=== PATIENT | male | born 1985 | race African-American/Black ===

== ENCOUNTER 2023-06-21 18:02 | Emergency (ER) | payer BC, SELFPAY ==
--- NOTE | ~2023-06-21 | XR_ITS ---
EXAMINATION: XR FOOT, RIGHT CLINICAL INFORMATION: pain over 2/3 MTP joints COMPARISON: None available. TECHNIQUE: AP, lateral, and oblique views of the right foot. FINDINGS: No fracture. No dislocation. Bone and joint are normal. No soft tissue abnormality. XR/XR foot RT 2V IMPRESSION: Normal right foot.
--- NOTE | 2023-06-21 18:29 | ED_ITS ---
HPI - General Adult General Chief complaint: Extremity Problem Stated complaint: foot inj, broken? Time Seen by Provider: 06/21/23 18:59 Source: patient Mode of arrival: ambulatory Limitations: no limitations History of Present Illness HPI narrative: Patient is a 38 year old assigned male at with no reported medical history presenting to the emergency department today with right foot pain. Patient states that over the last 2 days he has had worsening right foot pain. Patient denies any dizziness, lightheadedness, abdominal pain, nausea, vomiting, fever, chills, blurry vision, double vision, loss of vision, chest pain, difficulty breathing, shortness of breath, back pain, night sweats, pain with urination, increased urinary frequency, increased urinary urgency, blood in his urine or stool, syncope or a near syncopal episode, recent trauma or falls, bowel incontinence, bladder incontinence, bowel retention, bladder retention, or any other complaints at this time. Onset (ago): day(s) (2) Location: right and lower extremity Radiation: non-radiation Severity: mild Severity scale (1-10): 3 Quality: aching and dull Pain Consistency: constant Relieving factors: none Exacerbating factors: none Associated symptoms: denies other symptoms Treatments prior to arrival: none Related Data Previous Rx's Medication Instructions Recorded cephalexin 500 mg capsule 500 mg PO Q6H 7 days #28 caps 06/21/23 fluconazole 150 mg tablet 150 mg PO Q3D 2 doses #2 tabs 06/21/23 (Diflucan) Allergies Allergy/AdvReac Type Severity Reaction Status Date / Time No Known Allergies Allergy Verified 06/21/23 18:32 Review of Systems Constitutional: Constitutional: Reports no additional constitutional complaints, Denies chills, Denies fever(s) and Denies night sweats Eyes: Eyes: Reports no additional eye complaints, Denies blurry vision, Denies change in vision, Denies diplopia, Denies eye discharge, Denies loss of vision and Denies eye pain ENT: Denies dizziness Cardiovascular: Cardiovascular: Reports no additional cardiovascular complaints, Denies chest pain, Denies lightheadedness, Denies Loss of Consciousness and Denies dyspnea Respiratory: Respiratory: Reports no additional respiratory complaints and Denies dyspnea Gastrointestinal: Gastrointestinal: Reports no additional gastrointestinal com plaints, Denies abdominal pain, Denies melena, Denies hematochezia, Denies change in bowel habits and Denies change in stool character Genitourinary: Genitourinary: Reports no additional male genitourinary complaints, Denies hematuria, Denies oliguria, Denies difficulty urinating, Denies dysuria, Denies urinary frequency, Denies urinary hesitancy, Denies urinary incontinence and Denies urinary urgency Musculoskeletal: Musculoskeletal: Reports no additional musculoskeletal complaints, Denies numbness and Denies tingling Comments: right foot pain Neurologic: Denies dizziness, Denies loss of vision, Denies numbness and Denies tingling Psychiatric: Psychiatric: Reports no additional psychiatric complaints Endocrine: Endocrine: Reports no additional endocrine complaints Hematologic/Lymphatic: Hematologic/Lymphatic: Reports no additional cali tologic/lymphatic complaints Allergic/Immunologic: Allergic/Immunologic: Reports no additional allergic/immunologic complaints PMFSH Past Medical History Attestation statement: The following information was validated with the patient. Source: old records reviewed and nursing notes reviewed Social History Social History Advance Directives: No Advance Directives Information Provided: Yes Physical Exam ED Vital Signs: Vital Signs - 24 hr 06/21/23 18:30 Temperature 97.8 F Pulse Rate 70 Respiratory Rate 16 Blood Pressure 122/77 Pulse Oximetry 100 Oxygen Delivery Method Room Air BMI result Body Mass Index 27.7 Const General: cooperative, no acute distress, alert and awake Nutritional Appearance: well nourished Orientation/consciousness: patient oriented x3 Limitations: no limitations HENMT Head: Yes normal to inspection and Yes atraumatic Ears: hearing grossly normal bilaterally and external ears normal General nose exam: Normal external nose present, no nasal discharge noted and no epistaxis Face and sinus: Yes normal facial exam, No abrasion and No laceration Mouth: Normal oral and palatal mucosa present, no drooling and no muffled voice Eyes General: appearance normal, both eyes and all related structures Periorbital: periorbital findings normal Eyelids: Yes eyelids normal Conjunctivae: conjunctivae normal Pupils: Equal, round and reactive pupils present EOM: EOMs intact bilaterally Neck Neck: Yes normal visual inspection, Yes full ROM and Yes no lymphadenopathy Chest Chest palpation & inspection: normal inspection of the chest Resp Effort & Inspection: normal respiratory effort and able to speak in complete sentences GI Inspection: Yes normal to inspection Neuro General: patient oriented x3 and moves all extremities Cranial nerves: Yes Equal, round and reactive pupils present Cognition (Neuro): normal cognition Motor exam (neuro): 5/5 motor strength present throughout Sensory Exam: Normal double simultaneous stimulation for sensation Coordination: [id number] test normal Extrem Other: minimal erythema and warmth present to the dorsal aspect of the right foot with evidence of yeast between the toes General: Yes full ROM and Yes capillary refill normal Psych Appearance: grossly normal Mental Status: mental status grossly normal Affect: normal affect Attitude: cooperative Thought process: Normal thought process present Thought content: Normal thought content present Insight: Good insight present (Psych) Course Course Course Narrative: This is a rapid medical exam: Additional HPI, ROS, PE not included below will be deferred to primary provider. Patient is a 38-year-old male presenting to the emergency department with complaint of right foot pain for the past 2 days. Was at work when it began to hurt, pain has worsened since. Also reports numbness/tingling, throbbing pain. Denies fall or other injury. Tenderness and swelling to 2nd and 3rd MTP joints and toes of right foot, no erythema or warmth, 2+ DP pulse. Plan: xray Medical Decision Making Medical Decision Making [facility] Narrative: Patient is a 38 year old assigned male at with no reported medical history presenting to the emergency department today with right foot pain. Patient's physical exam was as noted in the physical exam portion of this chart. Patient's right foot x-ray showed no acute process. I explained my physical exam findings as well as all test results to the patient. I answered all questions asked by the patient. I stressed the importance of the patient taking his medication as prescribed. I stressed the importance of the patient following up with his primary care provider. I stressed the importance of the patient returning to the emergency department immediately if his symptoms were to worsen or if he were to develop any dizziness, shortness of breath, difficulty breathing, chest pain, blurry vision, loss of vision, nausea, vomiting, abdominal pain, fever, chills, back pain, or any other complaints. Patient verbalized agreement and understanding with this treatment plan and discharge. Differential Diagnosis Differential Diagnoses: The differential diagnosis associated with the presentation includes Cellulitis Athletes foot Independent Interpretation I performed an independent interpretation of an: Plain X-Ray Interpretation: My interpretation is in agreement with the radiologist's impression of this imaging study. EXAMINATION: XR FOOT, RIGHT CLINICAL INFORMATION: pain over 2/3 MTP joints? COMPARISON: None available.? TECHNIQUE: AP, lateral, and oblique views of the right foot. FINDINGS: No fracture. No dislocation. Bone and joint are normal. No soft tissue abnormality.? XR/XR foot RT 2V IMPRESSION: Normal right foot. Dictated By: Joe Tirado MD Signed By: Electronically signed by Joe Tirado MD 06/21/232021 Radiology Impression Discussion of test interpretation with radiology: I have reviewed the radiologi 's reading. Discharge Plan Discharge Clinical Impression: Cellulitis, Yeast infection Patient Disposition: Home, Self-Care Instructions: Cellulitis (DC), Skin Yeast Infection (ED) Additional Instructions: Follow up with your primary care provider. Return to the emergency department immediately if your symptoms worsen or if you develop any dizziness, shortness of breath, difficulty breathing, chest pain, blurry vision, loss of vision, nausea, vomiting, abdominal pain, fever, chills, back pain, or any other complaints. Prescriptions: New fluconazole [Diflucan] 150 mg tablet 150 mg PO Q3D Qty: 2 0RF cephalexin 500 mg capsule 500 mg PO Q6H 7 Days Qty: 28 0RF Referrals: [facility] [Provider Group] (Call to establish and follow up with a primary care provider. If you already have a primary care provider, please follow up with them.) [facility] [Provider Group] (Call to establish and follow up with a primary care provider. If you already have a primary care provider, please follow up with them.) [facility] [Provider Group] (Call to establish and follow up with a primary care provider. If you already have a primary care provider, please follow up with them.) Interventions: ED Discharge Assessment Last Done: 06/21/23 19:33 Discharge Date/Time: 06/21/23 19:55 Print Language: Iranian
[2023-06-21 18:30] VITALS: BP 122/77; PULSE 70; RESP 16; TEMP 36.6; O2SAT 100; BMI 27.7
== END 2023-06-21 19:55 | disposition home or self-care (01) ==
PROVIDERS: Emergency Provider Emergency Medicine
DX: B37.9 Candidiasis, unspecified (principal); L03.115 Cellulitis of right lower limb; M79.671 Pain in right foot
CPT/HCPCS: 73620; 99282; 99283

== ENCOUNTER 2023-06-24 16:18 | Emergency (ER) | payer BC, SELFPAY ==
[2023-06-24 16:43] VITALS: BP 106/77; PULSE 60; RESP 18; TEMP 36.4; O2SAT 99; BMI 28.4
--- NOTE | 2023-06-24 16:44 | ED_ITS ---
HPI - General Adult General Chief complaint: General Medical Stated complaint: right foot infection seen here 06/21 Time Seen by Provider: 06/24/23 20:56 Source: patient, RN notes reviewed and old records reviewed Mode of arrival: ambulatory Limitations: no limitations History of Present Illness HPI narrative: 38-year-old male presents for evaluation of infection to his right foot. Patient denies any medical history, he is not on any immunotherapy Patient was seen here a few days ago and was diagnosed with an infection to his right foot. He was prescribed Diflucan and cephalexin and discharged home He reports his symptoms have worsened since then. 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 Related Data Previous Rx's Medication Instructions Recorded cephalexin 500 mg capsule 500 mg PO Q6H 7 days #28 caps 06/21/23 fluconazole 150 mg tablet 150 mg PO Q3D 2 doses #2 tabs 06/21/23 (Diflucan) clotrimazole-betamethasone 1 1 appl topical BID 2 weeks #45 06/24/23 %-0.05 % topical cream grams Allergies Allergy/AdvReac Type Severity Reaction Status Date / Time No Known Allergies Allergy Verified 06/21/23 18:32 Review of Systems Constitutional: Constitutional: Denies chills and Denies fever(s) Musculoskeletal: Musculoskeletal: Reports arthralgias and Reports joint swelling Integumentary/Breasts: Comments: Rash to right foot PMFSH Social History Social History Advance Directives: No Advance Directives Information Provided: Yes Physical Exam ED Vital Signs: Vital Signs - 24 hr 06/24/23 16:43 Temperature 97.5 F Pulse Rate 60 Respiratory Rate 18 Blood Pressure 106/77 Pulse Oximetry 99 Oxygen Delivery Method Room Air BMI result Body Mass Index 28.4 Const General: healthy appearing, comfortable, no acute distress, alert and awake Nutritional Appearance: well nourished Orientation/consciousness: patient oriented x3 Eyes Eyelids: Yes eyelids normal Conjunctivae: conjunctivae normal Sclerae: sclerae normal Corneas: corneas normal Pupils: Equal, round and reactive pupils present EOM: EOMs intact bilaterally Neck Neck: Yes full ROM Resp Effort & Inspection: normal respiratory effort, able to speak in complete sentences and not labored Skin Other: Patient has significant whitish discharge in the web spacing of all toes to the right foot. The area is moist. There is no significant erythema. There open wounds between the toes most evident in between the 2nd toes on the right foot. The patient does have some whitish discharge no of spacing of the left toes without any evidence of skin breakdown General skin exam: elasticity normal Neuro General: patient oriented x3 Cranial nerves: Yes Equal, round and reactive pupils present and Yes Bilaterally intact EOM present Cognition (Neuro): normal cognition Extrem Other: Moving all extremities well without any obvious deformities Course Course Course Narrative: This is an RME: Additional HPI, ROS, PE not included below will be deferred to primary provider. 38 year old male presents w/ right foot pain, swelling and redness X over a week on PO atbx not helping. No fevers, chills, numbness, tingling. Plan- labs, imaging Medical Decision Making Medical Decision Making [facility] Narrative: 38-year-old male presents for evaluation of right foot infection. He appears to have a severe case of tinea pedis. There is no evidence of bacterial infection, no significant edema, no erythema extending up the foot. No fever. We will add clotrimazole with betamethasone to his current treatment regimen. Patient was also educated on treatment of athlete's foot Differential Diagnosis Differential Diagnoses: The differential diagnosis associated with the presentation includes Tinea pedis Athlete's foot Cellulitis Skin breakdown Open wounds Lab Data [facility] Lab Attestation statement: I reviewed the patient's lab results. No significant leukocytosis, mild anemia of no clinical significance to his current visit. Electrolytes within normal limits 06/24/23 19:29 06/24/23 19:29 Labs: Lab Results 06/24/23 06/24/23 Range/Units 19:29 19:29 WBC 6.6 (4.8-10.8) X10*3/uL RBC 4.52 L (4.60-5.80) X10*6/uL Hgb 13.5 L (14.0-18.0) g/dl Hct 41.1 L (42.0-52.0) % MCV 90.9 (80.0-98.0) fL MCH 29.9 (27.0-33.0) pg MCHC 32.8 (31.0-36.0) g/dl RDW 12.4 (11.0-16.0) % Plt Count 262 (160-400) X10*3/uL MPV 9.5 (9.4-12.4) fL Immature Gran % (Auto) 0.3 (0.0-0.4) % Neut % (Auto) 67.2 (45-73) % Lymph % (Auto) 24.2 (20-40) % [place] % (Auto) 7.8 (2-11) % Eos % (Auto) 0.0 (0-4) % Baso % (Auto) 0.5 (0-2) % Lymph # (Auto) 1.6 (1.2-4.9) X10*3/uL [place] # (Auto) 0.5 (0.1-1.2) X10*3/uL Eos # (Auto) 0.0 (0.0-0.4) X10*3/uL Baso # (Auto) 0.0 (0.0-0.2) X10*3/uL Abs Immat Gran (auto) 0.02 (0.00-0.03) X10*3/uL Absolute Neuts (auto) 4.4 (2.0-8.3) x10*3/uL Absolute Nucleated RBC 0.000 (0.0-0.012) X10*3/uL Nucleated RBC % (auto) 0.0 (0.0-0.2) /100WBC Sodium 140 (135-145) mmol/L Potassium 4.2 (3.3-5.1) mmol/L Chloride 105 (96-108) mmol/L Carbon Dioxide 23 (22-29) mmol/L Anion Gap 16 (12-20) BUN 15 (9-16) mg/dL Creatinine 0.96 (0.5-1.4) mg/dL Estim Creat Clear Calc 125.7 Estimated GFR > 60 Random Glucose 85 (60-115) mg/dL Calcium 9.5 (8.4-10.2) mg/dL Total Bilirubin 0.5 (0.0-1.0) mg/dL AST 17 (5-37) U/L ALT 24 (0-40) U/L Alkaline Phosphatase 65 (39-117) U/L Total Protein 7.9 (6.5-8.0) g/dL Albumin 4.3 (3.5-5.0) g/dL Discharge Plan Discharge Clinical Impression: Tinea pedis Patient Disposition: Home, Self-Care Instructions: Skin Yeast Infection (ED) Additional Instructions: Your symptoms are related to a bad yeast infection that is causing some skin breakdown. I do not think you have a bacterial infection, but you may finish the antibi otics to prevent infection as you have open wounds Use the clotrimazole ointment as directed. Try to keep the area clean and dry Prescriptions: New clotrimazole-betamethasone 1-0.05 % cream 1 appl topical BID 14 Days Qty: 45 0RF No Action fluconazole [Diflucan] 150 mg tablet 150 mg PO Q3D Qty: 2 0RF cephalexin 500 mg capsule 500 mg PO Q6H 7 Days Qty: 28 0RF
[2023-06-24 19:33] LABS: MANUAL DIFF FLAG NO
[2023-06-24 19:42] LABS: Basophils Percent Auto 0.5 % (0-2); Hematocrit 41.1 % (42.0-52.0); Hemoglobin 13.5 g/dl (14.0-18.0); Imm Gran Abs Auto 0.02 X10*3/uL (0.00-0.03); Imm Gran Pct Auto 0.3 % (0.0-0.4); Lymphocytes Absolute Auto 1.6 X10*3/uL (1.2-4.9); Lymphocytes Percent Auto 24.2 % (20-40); Mean Corpuscular HGB Conc 32.8 g/dl (31.0-36.0); Mean Corpuscular Hemoglobin 29.9 pg (27.0-33.0); Mean Corpuscular Volume 90.9 fL (80.0-98.0); Mean Platelet Volume 9.5 fL (9.4-12.4); Monocytes Absolute Auto 0.5 X10*3/uL (0.1-1.2); Monocytes Percent Auto 7.8 % (2-11); Neutrophils Absolute Auto 4.4 x10*3/uL (2.0-8.3); Neutrophils Percent Auto 67.2 % (45-73); Platelet Count 262 X10*3/uL (160-400); Red Blood Count 4.52 X10*6/uL (4.60-5.80); Red Cell Distribution Width 12.4 % (11.0-16.0); White Blood Count 6.6 X10*3/uL (4.8-10.8)
[2023-06-24 19:51] LABS: Alanine Aminotransferase 24 U/L (0-40); Albumin Level 4.3 g/dL (3.5-5.0); Alkaline Phosphatase 65 U/L (39-117); Anion Gap 16 (12-20); Aspartate Amino Transferase 17 U/L (5-37); Bilirubin Total 0.5 mg/dL (0.0-1.0); Blood Urea Nitrogen 15 mg/dL (9-16); Calcium 9.5 mg/dL (8.4-10.2); Carbon Dioxide 23 mmol/L (22-29); Chloride 105 mmol/L (96-108); Creatinine Clr Calc Pharmacy 125.7; Estimated Glomerular Filt Rate > 60; Glucose Random 85 mg/dL (60-115); Potassium 4.2 mmol/L (3.3-5.1); Sodium 140 mmol/L (135-145); Total Protein 7.9 g/dL (6.5-8.0)
--- NOTE | 2023-06-24 21:24 | PC.NURSE ---
pt assessed, medicated with 5mg of oxycodone po
--- NOTE | 2023-06-24 21:30 | PC.NURSE ---
pt assessed at d/c, verbalized understaning of discharge instruction, denies any pain
== END 2023-06-24 21:31 | disposition home or self-care (01) ==
PROVIDERS: Physician Assistant; Emergency Provider Internal Medicine
DX: B35.3 Tinea pedis (principal); M79.671 Pain in right foot
CPT/HCPCS: 36415; 80053; 85025; 99282; 99283

== ENCOUNTER 2024-04-28 16:05 | Emergency (ER) | payer BC, SELFPAY ==
[2024-04-28 16:39] VITALS: BP 102/62; PULSE 86; RESP 16; TEMP 36.7; O2SAT 99; BMI 27.7
--- NOTE | 2024-04-28 16:41 | ED.SKABFB ---
HPI - Skin/Abscess/Foreign Bdy General Chief complaint: Skin/Abscess/Foreign Body Stated complaint: tick bite ? Time Seen by Provider: 04/28/24 18:22 History of Present Illness HPI narrative: The patient is a 38-year-old male who is generally healthy. About a week ago he noticed an area of redness on his right lower abdomen and a similar area of redness on his left chu. He went to an urgent care clinic a few days ago and was told that he probably had spider bites. No antibiotics were started. The a site on his right lower abdomen has gotten more swollen and painful and has started draining pus. He has had no fever, sweats, chills. The patient says that he had been in the [facility] a few days before these a skin manifestations began. He had been in [place]. Related Data Previous Rx's ?Medication ?Instructions ?Recorded cephalexin 500 mg capsule 500 mg PO Q6H 7 days #28 caps 06/21/23 fluconazole 150 mg tablet 150 mg PO Q3D 2 doses #2 tabs 06/21/23 (Diflucan) clotrimazole-betamethasone 1 1 appl topical BID 2 weeks #45 06/24/23 %-0.05 % topical cream grams doxycycline monohydrate 100 mg 100 mg PO BID #20 caps 04/28/24 capsule Allergies Allergy/AdvReac Type Severity Reaction Status Date / Time No Known Allergies Allergy Verified 04/28/24 16:40 Review of Systems Review of Systems: Yes all other systems are reviewed and are negative [facility] Social History Social History Advance Directives: No Advance Directives Information Provided: No Do you have a plan to hurt others: No Plan Physical Exam Vital Signs: Vital Signs: Last Vital Signs Temp 97.4 F 04/28/24 19:56 Pulse 73 04/28/24 19:56 Resp 16 04/28/24 19:56 BP 102/66 04/28/24 19:56 Pulse Ox 99 04/28/24 19:56 O2 Del Method Room Air 04/28/24 19:56 BMI result Body Mass Index 27.7 Const: Other: The patient is a 38-year-old male who looks as though he is ordinarily in good health. He does not appear acutely toxic. HEENT: Other: Face is symmetrical, mucous membranes moist Eyes: Other: Pupils are round equal, conjunctivae clear Neck: Other: No neck swelling, moving his neck easily Resp: Effort & Inspection: normal respiratory effort GI: Other: There is an area of redness and swelling with a small amount of purulent drainage in the right lower abdomen near the belt line. The patient seems to have superficial tenderness in this region associated with the lesion but otherwise the abdomen seems nontender. Skin: Other: The patient has skin swelling and redness and drainage in the right lower abdomen approximately 6 cm across. There is also an irregular area of erythema to the left lower leg anteriorly, over the chu. There is a central scab in this skin lesion but there is no swelling or pus. Neuro: Other: The patient is awake and alert with a normal mental status. Extrem: Other: The patient has an area of erythema to the left chu but can move the leg well. Course Course Course Narrative: This is a Rapid Medical Examination (RME) performed by Leatha Eli PA-C in triage. Full HPI, ROS, assessment and treatment plan per primary provider in the Main ED. 38 yo male here for eval of possible tick vs insect bite to abdomen and left lower extremity x1 week. was evaluated at [facility], was informed that it was not a tick bite and was discharged home without testing or treatment. admits to cutting the area on his abdomen open and it has been draining since. reports increased swelling and pain to the area. endorses bite to his left chu as well. not draining. denies fever/chills. Plan: labs, tick bourne testing, lyme testing, +/- abdominal imaging per primary provider Medications Administered Discontinued Medications Generic Name Dose Route Start Last Admin Trade Name Freq PRN Reason Stop Dose Admin Doxycycline Monohydrate 100 mg 04/28/24 19:29 04/28/24 20:00 Doxycycline Monohydrate 100 Mg Capsule PO 04/28/24 19:30 100 mg ONCE ONE Administration Lidocaine HCl 5 ml 04/28/24 18:38 04/28/24 19:16 Lidocaine Hcl 1 % Mpf 5 Ml Vial INFILTRATI 04/28/24 18:39 5 ml ONCE ONE Administration Medical Decision Making Medical Decision Making MDM Narrative: The patient is a very pleasant an ordinarily healthy 38-year-old who has a small abscess in the abdominal skin in the right lower quadrant. He also has an area of erythema in the region of the left chu. The left chu lesion has a central scab but no sign of an abscess. My overall impression is that the patient probably had 2 bug bites which have gotten infected and that the abdominal lesion has developed a small abscess. I examined this lesion with a bedside ultrasound which revealed a small amount of complex fluid. I then performed a bedside incision and drainage procedure which resulted in the drainage of a moderate amount of very thick purulent material. The patient will be started on doxycycline. The patient is encouraged to get a new primary care doctor. He was given a work note for tomorrow. Lab Data 04/28/24 16:49 04/28/24 16:49 Labs: Lab Results 04/28/24 Range/Units 16:49 WBC 8.1 (4.8-10.8) X10*3/uL RBC 4.19 L (4.60-5.80) X10*6/uL Hgb 12.8 L (14.0-18.0) g/dl Hct 37.9 L (42.0-52.0) % MCV 90.5 (80.0-98.0) fL MCH 30.5 (27.0-33.0) pg MCHC 33.8 (31.0-36.0) g/dl RDW 12.3 (11.0-16.0) % Plt Count 262 (160-400) X10*3/uL MPV 9.0 L (9.4-12.4) fL Immature Gran % (Auto) 0.2 (0.0-0.4) % Neut % (Auto) 73.9 H (45-73) % Lymph % (Auto) 15.8 L (20-40) % [place] % (Auto) 8.2 (2-11) % Eos % (Auto) 1.5 (0-4) % Baso % (Auto) 0.4 (0-2) % Lymph # (Auto) 1.3 (1.2-4.9) X10*3/uL [place] # (Auto) 0.7 (0.1-1.2) X10*3/uL Eos # (Auto) 0.1 (0.0-0.4) X10*3/uL Baso # (Auto) 0.0 (0.0-0.2) X10*3/uL Abs Immat Gran (auto) 0.02 (0.00-0.03) X10*3/uL Absolute Neuts (auto) 6.0 (2.0-8.3) x10*3/uL Absolute Nucleated RBC 0.000 (0.0-0.012) X10*3/uL Nucleated RBC % (auto) 0.0 (0.0-0.2) /100WBC Sodium 141 (135-145) mmol/L Potassium 3.8 (3.3-5.1) mmol/L Chloride 107 (96-108) mmol/L Carbon Dioxide 27 (22-29) mmol/L Anion Gap 11 L (12-20) BUN 21 H (9-16) mg/dL Creatinine 1.29 (0.5-1.4) mg/dL Estim Creat Clear Calc 86.0 Estimated GFR > 60 Random Glucose 109 (60-115) mg/dL Calcium 9.3 (8.4-10.2) mg/dL Magnesium 2.3 (1.6-2.6) mg/dL Total Bilirubin 0.6 (0.0-1.0) mg/dL AST 17 (5-37) U/L ALT 17 (0-40) U/L Alkaline Phosphatase 72 (39-117) U/L Total Protein 7.7 (6.5-8.0) g/dL Albumin 4.3 (3.5-5.0) g/dL Lipase 33 (8-78) U/L Procedures Abscess I/D Site: abdomen Side (if applicable): right Local Anesthetic: lidocaine 1% Amount of anesthesia used (mL): 5 Technique: incised with blade Amount of fluid expressed (mL): 4 Sent for culture/gram staining?: Yes Irrigation: Yes Packing used?: none Discharge Plan Discharge Clinical Impression: Abscess of abdominal wall, Bug bite with infection Patient Disposition: Home, Self-Care Additional Instructions: Please take doxycycline 2 times a day, approximately every 12 hours. Take your next dose at 7:00 AM in the morning on Saturday. Rest and take it easy tomorrow. Keep the wound covered with bacitracin and a Band-Aid. My hope is that the infection on your abdomen and on your left chu will both respond to the same antibiotic. A culture from the wound on your abdomen has been sent to the lab. If it grows bacteria which would require a different antibiotic we will contact you. Please contact your insurance to help get set up with a new primary care doctor. Return to the emergency room if you are worse at any time. Prescriptions: New doxycycline monohydrate 100 mg capsule 100 mg PO BID Qty: 20 0RF No Action fluconazole [Diflucan] 150 mg tablet 150 mg PO Q3D Qty: 2 0RF cephalexin 500 mg capsule 500 mg PO Q6H 7 Days Qty: 28 0RF clotrimazole-betamethasone 1-0.05 % cream 1 appl topical BID 14 Days Qty: 45 0RF Stand Alone Forms: Work/School Release Interventions: ED Discharge Assessment Last Done: 04/28/24 19:56 Discharge Date/Time: 04/28/24 19:57 Print Language: Vietnamese
[2024-04-28 16:56] LABS: MANUAL DIFF FLAG NO
[2024-04-28 16:58] LABS: Basophils Percent Auto 0.4 % (0-2); Eosinophils Absolute Auto 0.1 X10*3/uL (0.0-0.4); Eosinophils Percent Auto 1.5 % (0-4); Hematocrit 37.9 % (42.0-52.0); Hemoglobin 12.8 g/dl (14.0-18.0); Imm Gran Abs Auto 0.02 X10*3/uL (0.00-0.03); Imm Gran Pct Auto 0.2 % (0.0-0.4); Lymphocytes Absolute Auto 1.3 X10*3/uL (1.2-4.9); Lymphocytes Percent Auto 15.8 % (20-40); Mean Corpuscular HGB Conc 33.8 g/dl (31.0-36.0); Mean Corpuscular Hemoglobin 30.5 pg (27.0-33.0); Mean Corpuscular Volume 90.5 fL (80.0-98.0); Monocytes Absolute Auto 0.7 X10*3/uL (0.1-1.2); Monocytes Percent Auto 8.2 % (2-11); Neutrophils Percent Auto 73.9 % (45-73); Platelet Count 262 X10*3/uL (160-400); Red Blood Count 4.19 X10*6/uL (4.60-5.80); Red Cell Distribution Width 12.3 % (11.0-16.0); White Blood Count 8.1 X10*3/uL (4.8-10.8)
[2024-04-28 17:12] LABS: Alanine Aminotransferase 17 U/L (0-40); Albumin Level 4.3 g/dL (3.5-5.0); Alkaline Phosphatase 72 U/L (39-117); Anion Gap 11 (12-20); Aspartate Amino Transferase 17 U/L (5-37); Bilirubin Total 0.6 mg/dL (0.0-1.0); Blood Urea Nitrogen 21 mg/dL (9-16); Calcium 9.3 mg/dL (8.4-10.2); Carbon Dioxide 27 mmol/L (22-29); Chloride 107 mmol/L (96-108); Estimated Glomerular Filt Rate > 60; Glucose Random 109 mg/dL (60-115); Lipase 33 U/L (8-78); Magnesium 2.3 mg/dL (1.6-2.6); Potassium 3.8 mmol/L (3.3-5.1); Sodium 141 mmol/L (135-145); Total Protein 7.7 g/dL (6.5-8.0)
[2024-04-28 18:21] VITALS: BP 102/66; PULSE 73; RESP 16; TEMP 36.3; O2SAT 99
[2024-04-28] MEDS: Lidocaine HCl 1 % MPF 5 ML VIAL INFILTRATI (19:16)
--- NOTE | 2024-04-28 19:16 | PC.NURSE ---
provider at bedside for abscess drainage
[2024-04-28 19:56] VITALS: BP 102/66; PULSE 73; RESP 16; TEMP 36.3; O2SAT 99
[2024-04-28] MEDS: Doxycycline Monohydrate 100 MG CAPSULE PO (20:00)
[2024-04-29 21:22] LABS: Lyme Abs Screen <0.90 index
[2024-04-30 15:38] LABS: A. Phagocytphilium DNA,RT-PCR NOT DETECTED (NOT DETECTED); Babesia Microti DNA, RT-PCR NOT DETECTED (NOT DETECTED); Borrelia Miyamotoi,DNA RT-PCR NOT DETECTED (NOT DETECTED); E.Chaffeensis DNA RT-PCR NOT DETECTED (NOT DETECTED); Lyme(Borrelia ssp)DNA RT-PCR NOT DETECTED (NOT DETECTED)
== END 2024-04-28 19:57 | disposition home or self-care (01) ==
PROVIDERS: Physician Assistant Medical; Emergency Provider Emergency Medicine
DX: L02.211 Cutaneous abscess of abdominal wall (principal); S30.861A Insect bite (nonvenomous) of abdominal wall, initial encounter; L08.9 Local infection of the skin and subcutaneous tissue, unspecified; W57.XXXA Bitten or stung by nonvenomous insect and other nonvenomous arthropods, initial encounter; Y93.9 Activity, unspecified; Y92.9 Unspecified place or not applicable; Y99.9 Unspecified external cause status
CPT/HCPCS: 10060; 36415; 80053; 83690; 83735; 85025; 86617; 86618; 87070; 87077; 87186; 87205; 87468; 87469; 87478; 87484; 87798; 99283; 99284